=== PATIENT | male | born 1985 | race American Indian/Alaskan Native ===

== ENCOUNTER 2016-11-29 13:21 | Emergency (ER) | payer SELFPAY ==
[2016-11-29 13:45] VITALS: TEMP 97.9
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
[2016-11-29 14:14] VITALS: BP 172/98; PULSE 72; RESP 17
[2016-11-29 14:24] VITALS: O2SAT 95
== END 2016-11-29 14:20 | disposition home or self-care (01) ==
LOC: C.ER 13:21
DX: G89.29 Other chronic pain (principal); M54.9 Dorsalgia, unspecified

== ENCOUNTER 2017-06-17 08:05 | Emergency (ER) | payer SELFPAY ==
[2017-06-17 08:14] VITALS: BMI 40.3
[2017-06-17 08:18] VITALS: BP 165/119; PULSE 93; RESP 18; TEMP 98.4; O2SAT 97
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
== END 2017-06-17 09:44 | disposition home or self-care (01) ==
LOC: C.ER 08:05
DX: M54.5 Low back pain (principal); I10 Essential (primary) hypertension; E11.9 Type 2 diabetes mellitus without complications

== ENCOUNTER 2017-09-10 10:03 | Emergency (ER) | payer SELFPAY ==
[2017-09-10 10:18] VITALS: BMI 40.7
[2017-09-10 10:45] VITALS: O2SAT 96
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
[2017-09-10 11:52] VITALS: BP 175/98; RESP 20
[2017-09-10 11:54] VITALS: PULSE 88; TEMP 97.8
== END 2017-09-10 12:07 | disposition home or self-care (01) ==
LOC: C.ER 10:03
DX: G89.29 Other chronic pain (principal); M54.5 Low back pain; I10 Essential (primary) hypertension; Z76.0 Encounter for issue of repeat prescription

== ENCOUNTER 2018-05-28 16:45 | Emergency (ER) | payer OTHER ==
[2018-05-28 16:53] VITALS: BMI 42.5
[2018-05-28] MEDS ORDERED: Dexamethasone 4 mg/1 ml IM STA (17:21)
[2018-05-28] MEDS ORDERED: Dexamethasone 4 mg/1 ml ONE (17:30)
--- NOTE | 2018-05-28 17:31 | C.PDOC ---
History Of Present Illness 32 years old male with PMHx of HTN, Stroke, and Diabetes(Type 2) presents to ED for complaints of intermittent back pain that developed 3-4 days ago after shovelling snow. Patient states he went to ER and was prescribed flexeril with no improvement since then which prompted the ED visit today. Denies fall, injuries, abdominal pain, or any other physical complaints. Patient also reports he has an appointment on Tuesday with his PMD. Patient states he is allergic to Motrin and Naproxen. Patient also reports he has been complaint with medications. Medications: * Hydrochlorizide * Losartan * Hydralazine * Clavix * Metformin Time Seen by Provider: 05/28/18 17:03 Chief Complaint (Nursing): Back Pain History Per: Patient History/Exam Limitations: no limitations Onset/Duration Of Symptoms: Days Current Symptoms Are (Timing): Still Present Previous Symptoms: Back Pain Associated Symptoms: None. denies: Incontinence, New Weakness, New Numbness Exacerbating Factor(s): Movement Recent travel outside of the [facility]: No Past Medical History Reviewed: Historical Data, Nursing Documentation, Vital Signs Vital Signs: Last Vital Signs Temp 97.9 F 05/28/18 16:52 Pulse 97 H 05/28/18 16:52 Resp 20 05/28/18 16:52 BP 186/139 H 05/28/18 16:52 Pulse Ox 98 05/28/18 16:52 - Medical History PMH: Back Problems, Diabetes, HTN Family History: States: Unknown Family Hx - Social History Hx Alcohol Use: Yes Hx Substance Use: No - Immunization History Hx Tetanus Toxoid Vaccination: No Hx Influenza Vaccination: No Hx Pneumococcal Vaccination: No Review Of Systems Except As Marked, All Systems Reviewed And Found Negative. Constitutional: Negative for: Fever, Chills Gastrointestinal: Negative for: Nausea, Vomiting, Abdominal Pain, Diarrhea Musculoskeletal: Positive for: Back Pain Skin: Negative for: Rash Neurological: Negative for: Weakness, Numbness Physical Exam - Physical Exam Appears: Non-toxic, No Acute Distress Skin: Normal Color, Warm, Dry, No Rash Head: Atraumatic, Normacephalic Eye(s): bilateral: Normal Inspection, PERRL, EOMI Oral Mucosa: Moist Neck: Normal ROM, Supple Chest: Symmetrical, No Tenderness Cardiovascular: Rhythm Regular, No Murmur Respiratory: Normal Breath Sounds, No Rales, No Rhonchi, No Wheezing Gastrointestinal/Abdominal: Normal Exam, Soft, No Tenderness Back: Other (Diffuse tenderness ) Extremity: Normal ROM Extremity: Bilateral: Atraumatic, Normal Color And Temperature, Normal ROM Pulses: Left Radial: Normal, Right Radial: Normal Neurological/Psych: Oriented x3, Normal Speech, Other (No focal deficits ) Gait: Steady ED Course And Treatment O2 Sat by Pulse Oximetry: 98 (RA) Pulse Ox Interpretation: Normal Medical Decision Making Medical Decision Making: Plan: * Decadron Inj * Ultram Patient was found to have elevated BP, patient states he is always in that range. Clonidine ordered. BP remains elevated. The patient states that he wishes to be discharged and is refusing further medications for BP. On re-exam, the patient reports improvement of symptoms. Lungs are CTA, heart is RRR, abdomen is soft, non-tender and tolerating PO well. Ambulatory in the ED with steady gait. Follow up with the medical doctor within 1-2 days. Return if worsened. Disposition - Disposition Referrals: [facility] [Outside] Disposition: HOME/ ROUTINE Disposition Time: 18:49 Condition: FAIR Additional Instructions: YOU MUST FOLLOW UP WITH REGARDING THE VERY HIGH BLOOD PRESSURE/. . Follow up with the medical doctor within 1-2 days. Return if worsened. Prescriptions: diaZEpam [Valium] 5 mg PO TID #21 tab traMADol [Ultram] 50 mg PO Q6 PRN #20 tab PRN Reason: Pain Instructions: Low Back Pain (DC) Forms: [facility] (Vietnamese) - Clinical Impression Clinical Impression: Hypertension, Low back strain - PA / LURE MAKER / Resident Statement MD/DO has reviewed & agrees with the documentation as recorded. - Scribe Statement The provider has reviewed the documentation as recorded by the Elenaibmamie Oliveros All medical record entries made by the Elenaibmamie were at my direction and personally dictated by me. I have reviewed the chart and agree that the record accurately reflects my personal performance of the history, physical exam, medical decision making, and the department course for this patient. I have also personally directed, reviewed, and agree with the discharge instructions and disposition.
[2018-05-28 18:25] VITALS: PULSE 90; RESP 18; TEMP 98.2
[2018-05-28 18:48] VITALS: BP 188/152
[2018-05-28 18:52] VITALS: O2SAT 98
== END 2018-05-28 18:59 | disposition home or self-care (01) ==
LOC: C.ER 16:45
DX: S39.012A Strain of muscle, fascia and tendon of lower back, initial encounter (principal); Y93.H1 Activity, digging, shoveling and raking; I10 Essential (primary) hypertension; E11.9 Type 2 diabetes mellitus without complications; Z86.73 Personal history of transient ischemic attack (TIA), and cerebral infarction without residual deficits
CPT/HCPCS: 96372; 99283; J1100

== ENCOUNTER 2018-06-24 20:26 | Emergency (ER) | payer OTHER ==
[2018-06-24 20:27] VITALS: BMI 42.5
[2018-06-24 20:36] VITALS: O2SAT 98
[2018-06-24] MEDS ORDERED: Sodium Chloride 0.9% 1,000 ML IV ONE ×2 (21:08)
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
[2018-06-24 21:36] LABS: BASO % 0.5 % (0.0-2.0); EOS # 0.1 K/uL (0.0-0.7); EOS % 1.7 % (0.0-4.0); HEMOGLOBIN 16.3 g/dL (12.0-18.0); LYMPH # 2.1 K/uL (1.0-4.3); LYMPH % 28.2 % (20.0-40.0); MEAN CELL VOLUME 82.7 fL (80.0-94.0); MEAN CORPUSCULAR HEMOGLOBIN 26.6 pg (27.0-31.0); MEAN CORPUSCULAR HGB CONC 32.2 g/dL (33.0-37.0); MEAN PLATELET VOLUME 12.9 fL (7.2-11.7); MONO # 0.7 K/uL (0.0-0.8); NEUT # 4.4 K/uL (1.8-7.0); NEUT % 59.6 % (50.0-75.0); RBC 6.13 Mil/uL (4.40-5.90); RED CELL DISTRIBUTION WIDTH 13.8 % (11.5-14.5); WHITE BLOOD COUNT 7.4 K/uL (4.8-10.8)
[2018-06-24 21:42] LABS: VENOUS BLOOD GAS PCO2 52 mmHg (40-60); VENOUS BLOOD GAS PO2 46 mm/Hg (30-55)
[2018-06-24 21:43] LABS: PROTHROMBIN TIME 11.4 SECONDS (9.7-12.2)
[2018-06-24 21:52] VITALS: RESP 17
[2018-06-24 21:52] LABS: ALB/GLOB RATIO 1.4 (1.0-2.1); ALBUMIN 4.3 g/dL (3.5-5.0); ALT/SGPT 25 U/L (21-72); AST/SGOT 29 U/L (17-59); BLOOD UREA NITROGEN 21 mg/dL (9-20); CALCIUM 10.1 mg/dl (8.6-10.4); GFR NON-AFRICAN AMERICAN > 60
[2018-06-24] MEDS ORDERED: (Novolin R) Insulin Human Regular 100 units/ml vial IVP STA (21:52)
[2018-06-24] MEDS ORDERED: (Novolin R) Insulin Human Regular 100 units/ml vial ONE (22:00)
[2018-06-24 23:26] LABS: URINE BILIRUBIN NEGATIVE (NEGATIVE); URINE BLOOD NEGATIVE (NEGATIVE); URINE CLARITY Clear (Clear); URINE COLOR Straw (YELLOW); URINE GLUCOSE (UA) 3+ mg/dL (Normal); URINE LEUKOCYTE ESTERASE NEG Leu/uL (Negative); URINE PROTEIN 1+ mg/dL (NEGATIVE); URINE UROBILINOGEN NORMAL mg/dL (0.2-1.0)
[2018-06-25 00:26] VITALS: BP 147/78; PULSE 89; TEMP 98.2
== END 2018-06-25 00:28 | disposition home or self-care (01) ==
LOC: C.ER 20:26
DX: Z76.0 Encounter for issue of repeat prescription (principal); E11.65 Type 2 diabetes mellitus with hyperglycemia; I10 Essential (primary) hypertension
CPT/HCPCS: 80053; 81001; 82009; 82803; 82948; 83930; 84484; 85025; 85610; 85730; 96374; 99284; J7030